=== PATIENT | female | born 1975 | race African-American/Black ===

== ENCOUNTER 2021-09-08 08:40 | Emergency (ER) | payer OTHER ==
[~2021-09-08] VITALS: Ht 167.6 cm; Wt 68.0 kg
[2021-09-08 08:41] VITALS: BP 130/75
[2021-09-08] MEDS ORDERED: ALBUTEROL (0.083%) 2.5MG/3ML NEB HHN ONE (09:15)
[2021-09-08] MEDS ORDERED: FAMOTIDINE 20MG/2ML VIAL IV ONE (09:15)
[2021-09-08 09:40] LABS: BASOPHILS % 0.2 % (0.0-2.0); EOSINOPHILS % 0.7 % (0.0-5.0); HEMATOCRIT. 41.4 % (36.0-48.0); HEMOGLOBIN. 13.7 g/dL (12.0-16.0); LYMPHOCYTES % 15.5 % (20.0-50.0); MEAN CORPUSCULAR HEMOGLOBIN 27.4 pg (28.0-32.0); MEAN CORPUSCULAR VOLUME 82.7 fL (81.0-99.0); NEUTROPHILS % 79.6 % (40.0-76.0); PLATELET 216 x1000/uL (130-400); RED CELL DISTRIBUTION WIDTH 13.1 % (11.6-14.6)
[2021-09-08] MEDS ORDERED: SODIUM CHLORIDE 0.9% 1,000 ML IV ONE (09:45)
[2021-09-08 09:48] LABS: CHLORIDE 107 mEq/L (98-107)
[2021-09-08 09:52] LABS: ETHANOL BLOOD < 10 mg/dL
[2021-09-08 09:58] LABS: *AMPHETAMINES SCREEN URINE NEGATIVE (NEGATIVE); *BARBITURATES SCREEN URINE NEGATIVE (NEGATIVE); *BENZODIAZEPINES SCREEN URINE NEGATIVE (NEGATIVE); *COCAINE SCREEN URINE NEGATIVE (NEGATIVE); METHADONE URINE SCREEN NEGATIVE (NEGATIVE)
[2021-09-08 09:59] LABS: CANNABINOID URINE SCREEN NEGATIVE (NEGATIVE); OPIATES URINE SCREEN NEGATIVE (NEGATIVE); PHENCYCLIDINE URINE SCREEN NEGATIVE (NEGATIVE)
[2021-09-08] MEDS ORDERED: POTASSIUM CHLORIDE 20MEQ TABLET SR PO NR (11:00)
[2021-09-08] MEDS ORDERED: DIPHENHYDRAMINE 25MG CAPSULE PO ONE (11:45)
[2021-09-08] MEDS: LORAZEPAM 0.5MG TABLET PO ONE ×2 (11:55→12:11)
[2021-09-08] MEDS ORDERED: ALBU6.7H9 INH (12:40)
[2021-09-08] MEDS ORDERED: FAMO-135 MT (12:40)
[2021-09-08] MEDS ORDERED: EPIN0.3P3 IM (12:40)
== END 2021-09-08 13:15 | disposition home or self-care (01) ==
LOC: ER 08:40
DX: T78.40XA Allergy, unspecified, initial encounter (principal); R06.02 Shortness of breath; E87.6 Hypokalemia; F41.9 Anxiety disorder, unspecified; Z85.3 Personal history of malignant neoplasm of breast; Z90.13 Acquired absence of bilateral breasts and nipples; Z91.048 Other nonmedicinal substance allergy status; Z91.013 Allergy to seafood; X58.XXXA Exposure to other specified factors, initial encounter
CPT/HCPCS: 36415; 71045; 80053; 80305; 80320; 83690; 83880; 84484; 85025; 93005; 94640; 96361; 96374; 99285; J3490; J7030; Z7610; Q0163; G0480